=== PATIENT | male | born 1940 | race Caucasian/White ===

== ENCOUNTER 2019-08-12 09:12 | Emergency (ER) | payer BC ==
--- OUTSIDE RECORDS SUMMARY | 2019-08-12 09:32 | XMS REPORT | Continuity of Care Document ---
:1940 External Reference #:[id number] Author Name María Curtis MD Address [address] [place] [address] Problems Active Problems Provider Date Diverticular disease of colon Davi Davis MD Onset: 06/21/2004 Atrial fibrillation María Curtis MD Onset: 09/14/2013 Chronic atrial fibrillation María Curtis MD Onset: 08/13/2015 Social History Type Date Description Comments Sex Unknown Tobacco Use Reviewed: 01/12/19 Patient has never smoked Smoking Status Reviewed: 08/05/19 Patient has never smoked Allergies, Adverse Reactions, Alerts Description No Known Drug Allergies Medications Active Medications SIG Qnty Indications Ordering Provider Date Coumadin Take On Mon, 30tabs Davi Davis MD 06/16/2003 7.5mg Tabs Wed, Fri, Sat. Coumadin Tues,Thurs And 30tabs Davi Davis MD 06/16/2003 5mg Tabs Sun. Atenolol 1 po qd 90tabs Unknown 25mg Tablets Immunizations CPT Code Status Date Vaccine Lot # [id number] Given 08/05/2019 Pneumococcal 23 Immunization Adult Or [id number] Immunosuppressed Patient 54091 Given 08/18/2018 Fluzone Highdose Age 65 And Over Preservative & Antibiotic Free 61412 Given 08/17/2017 Fluzone Highdose Age 65 And Over Preservative & [id number] Antibiotic Free 70217 Given 08/18/2016 Prevnar 13 Pneumococal Conjugate Vaccine [id number] 42709 Given 08/18/2016 Fluzone Highdose Age 65 And Over Preservative & [id number] Antibiotic Free 76661 Given 08/13/2015 Influenza Vac, Quadrivalent, Split, 0.5mL Dosage, Im Use [id number] Given 07/18/2014 Fluzone Trivalent Immunization 70668 Given 09/14/2013 Afluria Or Fluvirin Flu Vac Intramuscular 15405 Given 04/06/2012 Tdap (Adacel) Ages 7 And Above Only [id number] 68417 Given 09/14/2009 Administration Swine Flu Vaccine [id number] 29244 Given 08/30/2009 Afluria Or Fluvirin Flu Vac Intramuscular [id number] 40512 Given 09/01/2008 Afluria Or Fluvirin Flu Vac Intramuscular [id number] 33952 Given 09/03/2007 Afluria Or Fluvirin Flu Vac Intramuscular [id number] 02927 Given 09/04/2006 Afluria Or Fluvirin Flu Vac Intramuscular [id number] 10827 Given 08/29/2005 Afluria Or Fluvirin Flu Vac Intramuscular 24020 Given 08/29/2005 Afluria Or Fluvirin Flu Vac Intramuscular [id number] 28746 Given 08/22/2004 Afluria Or Fluvirin Flu Vac Intramuscular 28101 Given 05/16/2004 Pneumococcal 23 Immunization Adult Or Immunosuppressed Patient 42254 Given 05/16/2004 Immunization Td 7 Yrs Or Older 89112 Given 10/10/2003 Afluria Or Fluvirin Flu Vac Intramuscular 05440 Given 10/10/2003 Afluria Or Fluvirin Flu Vac Intramuscular Vital Signs Date Vital Result Comment 08/05/2019 10:05am Body Temperature 97.0 F Weight 178.00 lb Heart Rate 86 /min BP Systolic 130 mmHg BP Diastolic 90 mmHg BP Systolic Recheck 128 mmHg BP Diastolic Recheck 80 mmHg Respiratory Rate 16 /min Height 66 inches 5'6" O2 % BldC Oximetry 98 % BMI (Body Mass Index) 28.7 kg/m2 01/12/2019 10:31am Body Temperature 97.2 F Weight 178.00 lb Heart Rate 85 /min BP Systolic 138 mmHg BP Diastolic 86 mmHg Respiratory Rate 16 /min Height 66 inches 5'6" O2 % BldC Oximetry 95 % BMI (Body Mass Index) 28.7 kg/m2 Results Test Date Facility Test Result H/L Range Note CBC with Auto 08/02/2019 [facility] White Blood 4.9 K/uL Normal 3.4-10.5 1 Diff-fcmg (315)- - Count Red Blood Count 4.80 M/uL Normal 4.20-5.80 Hemoglobin 15.3 gm/dL Normal 12.8-17.0 Hematocrit 45.6 % Normal 38.0-48.0 Mean Cell Volume 95.0 fl Normal 80.0-96.0 Mean Corpuscular HGB 31.9 pg Normal 27.0-33.0 Mean Corpuscular HGB Conc 33.6 g/dL Normal 31.7-36.0 Platelet Count 175 K/uL Normal 155-360 Red Cell Distri Width SD 53.4 fl High 36-51 Red Cell Distri Width %CV 15.4 % Normal 11.6-15.8 Mean Platelet Volume 10.5 fl Normal 6.6-10.6 Neut% 64.1 % Normal 33.0-73.0 Lymph % 22.2 % Normal 20.0-42.0 Fleming % 11.3 % High 0.0-10.0 Eo% 1.6 % Normal 0.0-6.6 Bas% 0.6 % Normal 0.0-1.1 Immature Grans 0.2 % Normal 0.0-5.0 NRBC % 0.0 /100WBC < 10/ 100 WBC Neut# 3.12 K/uL Normal 1.8-7.0 Lymph # 1.08 K/uL Normal 1.0-4.0 Fleming # 0.55 K/uL Normal 0.0-0.8 Eos # 0.08 K/uL Normal 0.0-0.5 Baso # 0.03 K/uL Normal 0.0-0.1 Immature Grans Absolute 0.01 K/uL NRBC # 0.00 K/uL Comprehensive Met 08/02/2019 [facility] Glucose 97 mg/dL Normal 74-106 Panel-FCMG (315)- - BUN 17 mg/dL Normal 7-18 Creatinine 1.1 mg/dL Normal 0.6-1.3 Glom Filtration Rate, Estimate >60 mL/min >60 If >60 mL/min >60 2 BUN/Creat 15.4 ratio Sodium 139 mmol/L Normal 136-145 Potassium 4.3 mmol/L Normal 3.5-5.1 Chloride 105 mmol/L Normal 98-107 Carbon Dioxide 28 mmol/L Normal 21-32 Anion Gap 6 mEq/L Low 8-16 Calcium 8.5 mg/dL Normal 8.5-10.1 Total Protein 6.5 g/dL Normal 6.4-8.2 Albumin 3.6 g/dL Normal 3.4-5.0 Globulin 2.9 g/dL Normal 1.9-4.3 Alb/Glob 1.2 ratio Bilirubin,Total 0.9 mg/dL Normal 0.2-1.0 Sgot/Ast 23 U/L Normal 15-37 SGPT/Alt 28 U/L Normal 12-78 Alkaline Phosphatase 62 U/L Normal 45-117 Lipid 08/02/2019 [facility] Cholesterol 152 mg/dL < 200 3 (315)- - Triglycerides 131 mg/dL <150 4 HDL Cholesterol 26 mg/dL Low >40 5 LDL-Cholesterol 100 mg/dL < 100 6 Laboratory test 08/02/2019 [facility] Vitamin B12 620 pg/ mL Normal 193-986 finding (315)- - Vitamin D,25-Hydroxy 43.3 ng/mL 30.0-100.0 7 1 I10 E83.51 E53.9 E78.5 E55.9 2 Note: Persistent reduction for 3 months or more in an eGFR <60 mL/min/1.73 m2 defines CKD. Patients with eGFR values >/=60 mL/min/1.73 m2 may also have CKD if evidence of persistent proteinuria is present. The original MDRD equation for estimated GFR is not valid for patients less than 18 years of age. Additional information may be found at www.kdoqi.org. 3 Reference Guidelines*: Desirable: ........... < 200 mg/dL Borderline High: ..... 200-239 mg/dL High: ................ >= 240 mg/dL * The National Cholesterol Education Program (NCEP) 4 Reference Guidelines*: Normal: ............. < 150 mg/dL Borderline High: .... 150-199 mg/dL High: ............... 200-499 mg/dL Very High: .......... > 500 mg/dL * Source: National Cholesterol Education Program (NCEP) 5 Reference Guidelines*: Low HDL: ..... < 40 mg/dL Normal: ..... 40-60 mg/dL Desirable: ... > 60 mg/dL *The National Cholesterol Education Program(NCEP) 6 Reference Guidelines*: Optimal:........... <100 mg/dL Near Optimal....... 100-129 mg/dL Borderline High.... 130-159 mg/dL High............... 160-189 mg/dL Very High.......... >=190 mg/dL * Source: National Cholesterol Education Program (NCEP) 7 Vitamin D deficiency has been defined by the [place] of [employer] and an Endocrine Society practice guideline as a level of serum 25-OH vitamin D less than 20 ng/mL (1,2). The Endocrine Society went on to further define vitamin D insufficiency as a level between 21 and 29 ng/mL (2). 1. IOM ([place] of [employer]). 2010. Dietary reference intakes for calcium and D. [place]: The National Academies Press. 2. Alyse MF, Zay BRENNER, Albert CAMP, et al. Evaluation, treatment, and prevention of vitamin D deficiency: an Endocrine Society clinical practice guideline. JCEM. 2010; 96(7):1911-30. Performed at: RN - [facility] [address] [id number] Dish Person: Evy Yusuf MD, Phone: [phone] Procedures Date Code Description Status 03/11/2018 [id number] Colonoscopy Completed Medical Devices Description No Information Available Encounters Description No Information Available Assessments Date Code Description Provider 08/05/2019 I10 Essential (primary) hypertension María Curtis MD 08/05/2019 M15.0 Primary generalized (osteo)arthritis María Curtis MD 08/05/2019 N52.9 Male erectile dysfunction, unspecified María Curtis MD 08/05/2019 I48.20 Chronic atrial fibrillation, unspecified María Curtis MD 08/05/2019 Z79.01 FDC (current) use of anticoagulants María Curtis MD 08/05/2019 Z00.00 Encounter for general adult medical María Curtis MD examination without abnormal findings 08/05/2019 E66.3 Overweight María Curtis MD 08/05/2019 Z68.28 Body mass index (BMI) 28.0-28.9, adult María Curtis MD Plan of Treatment Future Appointment(s):02/06/2020 9:00 am - María Curtis MD at [facility]08/05/2019 - María Curtis MDI10 Essential (primary) hypertensionNew Labs:PSA, Ordered: 08/05/19Comments:Today, his BP is stable at 130/90. He was advised to continue w/ his current line of therapies. Hewill benefit from maintaining a low sodium diet. We will continue to monitor.M15.0 Primary generalized (osteo)arthritisComments:Patient was advised to continue taking Calcium+Vitamin D supplements. Patient was also advised to take OTC medication PRN for pain management.N52.9 Male erectile dysfunction, unspecifiedNew Labs:PSA, Ordered: 08/05/19Comments:Will continue Cialis as needed. Will continue to monitor.I48.20 Chronic atrial fibrillation, unspecifiedComments:He will continue on Coumadin for now. Continue to follow-up with Dr. 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 Physical exam completed.E66.3 OverweightComments:The patient currently weighs around 178lbs. The patient was advised on healthy diet and a regular exercise regimen. We discussed the risks associated with obesity and high levels of body fat. We will continue to monitor the patient's weight and the patient is advised to reduce the number of calories in diet.Z68.28 Body mass index (BMI) 28.0-28.9, adultComments:His BMI is at 28.7. He was strongly encouraged to monitor his weight and to maintain a low-calorie diet and exercises. We will continue to monitor his weight and BMI periodically.AllFollow up:He will follow-up in six months with CBC, CMP, Lipids , PSA, Vitamin D and B12 one week prior his appointment. Functional Status Description No Information Available Mental Status Description No Information Available Referrals Description No Information Available
--- NOTE | 2019-08-12 10:25 | UC ---
Throat Pain/Nasal Alan HPI - HPI Summary HPI Summary: 79-year-old male comes in with a chief complaint of 3 weeks of upper respiratory tract infection symptoms. He has green sputum. No recent fevers. He does hear some wheezing in his chest. It's worse when he lays down. Denies any history of COPD or congestive heart failure. Does make him short of breath. No edema. - History of Current Complaint Chief Complaint: UCRespiratory Stated Complaint: COUGH,CONGESTION Time Seen by Provider: 08/12/19 09:52 Pain Intensity: 0 - Allergies/Home Medications Allergies/Adverse Reactions: Allergies Allergy/AdvReac Type Severity Reaction Status Date / Time No Known Allergies Allergy Verified 08/12/19 09:33 Home Medications: Home Medications Atenolol TAB* [Tenormin TAB* 25 MG] 1 dose PO DAILY 08/12/19 [History Confirmed 08/12/19] Warfarin TAB(*) [Coumadin TAB(*)] 1 dose PO SEE INSTRUCTIONS 08/12/19 [History Confirmed 08/12/19] PMH/Surg Hx/FS Hx/Imm Hx Previously Healthy: Yes Cardiovascular History: Hypertension, Atrial Fibrillation - Surgical History Surgical History: Yes Surgery Procedure, Year, and Place: hernia repair - Family History Known Family History: Positive: Non-Contributory - Social History Alcohol Use: None Substance Use Type: None Smoking Status (MU): Never Smoked Tobacco Review of Systems All Other Systems Reviewed And Are Negative: Yes Constitutional: Positive: Other - SEE HPI Skin: Positive: Negative Eyes: Positive: Negative ENT: Positive: Nasal Discharge, Sinus Congestion Respiratory: Positive: Shortness Of Breath, Cough, Other - SEE HPI Cardiovascular: Positive: Negative Gastrointestinal: Positive: Negative Motor: Positive: Negative Neurovascular: Positive: Negative Musculoskeletal: Positive: Negative Neurological: Positive: Negative Psychological: Positive: Negative Is Patient Immunocompromised?: No Physical Exam Triage Information Reviewed: Yes Appearance: No Pain Distress, Well-Nourished, Ill-Appearing - MILD Vital Signs: Initial Vital Signs Temp 98.7 F 08/12/19 09:35 Pulse 75 08/12/19 09:35 Resp 16 08/12/19 09:35 BP 127/77 08/12/19 09:35 Pulse Ox 97 08/12/19 09:35 Vital Signs Reviewed: Yes Eye Exam: Normal Eyes: Positive: Conjunctiva Clear ENT Exam: Normal ENT: Positive: Pharyngeal erythema, Nasal congestion, Nasal drainage, TMs normal Neck: Positive: Supple Respiratory: Positive: No respiratory distress, No accessory muscle use, Rhonchi Cardiovascular: Positive: RRR Musculoskeletal: Positive: Strength Intact, ROM Intact, No Edema Neurological: Positive: Alert Psychological: Positive: Age Appropriate Behavior Skin Exam: Normal Throat Pain/Nasal Course/Dx - Course Course Of Treatment: Patient said 3 weeks of symptoms and is green sputum we'll treat with doxycycline out of milligrams by mouth twice a day for 10 days. Also gave him an albuterol prescription to be used. I let the patient know that if he gets worse he needs to the emergency department. - Differential Dx/Diagnosis Provider Diagnosis: Bronchitis with bronchospasm Discharge ED - Sign-Out/Discharge Documenting (check all that apply): Patient Departure All imaging exams completed and their final reports reviewed: No Studies - Discharge Plan Condition: Stable Disposition: HOME Prescriptions: Albuterol HFA INHALER* [Ventolin HFA Inhaler*] 2 puff INH Q4H PRN #1 mdi PRN Reason: Wheezing DOXYcycline CAP(*) [DOXYcycline 100MG CAP(*)] 100 mg PO BID #20 cap Patient Education Materials: Acute Bronchitis (ED), Bronchospasm (ED) [place]errals: [facility] [place] [facility] [place]Outside] Additional Instructions: FOLLOW UP WITH YOUR DOCTOR IF NOT COMPLETELY IMPROVED. GO TO THE EMERGENCY DEPARTMENT IF NOT IMPROVING OR YOUR CONDITION WORSENS OR ANY QUESTIONS OR CONCERNS - Billing Disposition and Condition Condition: STABLE Disposition: Home
== END 2019-08-12 10:30 | disposition home or self-care (01) ==
LOC: UCCORT 09:12
DX: J40 Bronchitis, not specified as acute or chronic (principal); J98.01 Acute bronchospasm; I10 Essential (primary) hypertension; I48.91 Unspecified atrial fibrillation; R09.81 Nasal congestion; R09.89 Other specified symptoms and signs involving the circulatory and respiratory systems; Z79.01 Long term (current) use of anticoagulants
CPT/HCPCS: 99202; G0463

== ENCOUNTER 2019-10-23 13:25 | Emergency (ER) | payer BC ==
[2019-10-23 14:47] VITALS: BP 116/83
--- NOTE | 2019-10-23 15:02 | UC ---
Respiratory Complaint HPI - HPI Summary HPI Summary: 79-year-old male who has had a cough, nonproductive, with wheezing over the past 3-4 days. Denies any fever or chills. He did get a pneumonia immunization as well as flu shot this year. - History of Current Complaint Chief Complaint: UCRespiratory Stated Complaint: CONGESTION,COUGH Time Seen by Provider: 10/23/19 14:52 Hx Obtained From: Patient, Family/Driver Recruiter Onset/Duration: Gradual Onset Severity Initially: Mild Severity Currently: Mild Pain Intensity: 0 Character: Cough: Nonproductive Aggravating Factors: Nothing Alleviating Factors: Bronchodilator Associated Signs And Symptoms: Positive: Wheezing, URI, Nasal Congestion - Allergies/Home Medications Allergies/Adverse Reactions: Allergies Allergy/AdvReac Type Severity Reaction Status Date / Time No Known Allergies Allergy Verified 10/23/19 14:48 PMH/Surg Hx/FS Hx/Imm Hx Previously Healthy: Yes - Surgical History Surgical History: Yes Surgery Procedure, Year, and Place: hernia repair - Family History Known Family History: Positive: Non-Contributory - Social History Occupation: Retired Lives: With Family Alcohol Use: None Substance Use Type: None Smoking Status (MU): Never Smoked Tobacco Review of Systems All Other Systems Reviewed And Are Negative: Yes ENT: Positive: Nasal Discharge Respiratory: Positive: Cough - Nonproductive cough however has had intermittent wheezing mostly at night. Is Patient Immunocompromised?: No Physical Exam Triage Information Reviewed: Yes Appearance: Well-Appearing, No Pain Distress, Well-Nourished Vital Signs: Initial Vital Signs Temp 97.8 F 10/23/19 14:39 Pulse 86 10/23/19 14:39 Resp 16 10/23/19 14:39 BP 116/83 10/23/19 14:39 Pulse Ox 96 10/23/19 14:39 Vital Signs Reviewed: Yes Eyes: Positive: Conjunctiva Clear ENT: Positive: Pharynx normal, TMs normal, Uvula midline Neck: Positive: Supple, Nontender, No Lymphadenopathy Respiratory: Positive: No respiratory distress, No accessory muscle use, Wheezing - Very mild wheezing with forced expiration. No distress. Cardiovascular: Positive: RRR, No Murmur, Pulses Normal, Brisk Capillary Refill Musculoskeletal Exam: Normal Neurological Exam: Normal Psychological Exam: Normal Skin Exam: Normal Respiratory Course/Dx - Course Course Of Treatment: At this point time the patient is comfortable and in no distress. I'm going to treat him with prednisone and he is to use his albuterol inhaler 2 puffs every 4 hours as needed for any wheezing. He is to follow-up with his primary care provider especially if he starts running a fever or having worsening symptoms. - Differential Dx/Diagnosis Provider Diagnosis: Bronchitis Discharge ED - Sign-Out/Discharge Documenting (check all that apply): Patient Departure All imaging exams completed and their final reports reviewed: No Studies - Discharge Plan Condition: Good Disposition: HOME Prescriptions: Albuterol HFA INHALER* [Ventolin HFA Inhaler*] 2 puff INH Q4H PRN 5 Days #1 mdi PRN Reason: Wheezing predniSONE TAB* [Deltasone 10 MG TAB*] 10 mg PO DAILY 12 Days #30 tab Patient Education Materials: Acute Bronchitis (ED) Referrals: María Curtis MD [Primary Care Provider] - Additional Instructions: Increase fluids, take the prednisone with food, use her albuterol inhaler 2 puffs every 4-6 hours as needed for wheezing. Follow-up with your primary care provider in 3-4 days if no improvement. - Billing Disposition and Condition Condition: GOOD Disposition: Home - Attestation Statements Provider Attestation: I was available for consult. This patient was seen by the [facility]. The patient was not presented to , seen by or examined by me -Anthony Rodriguez MD
== END 2019-10-23 15:12 | disposition home or self-care (01) ==
LOC: UCCORT 13:25
DX: J40 Bronchitis, not specified as acute or chronic (principal)
CPT/HCPCS: 99212; G0463